=== PATIENT | female | born 2000 | race African-American/Black ===

== ENCOUNTER 2023-12-12 20:57 | Emergency (ER) | payer OTHER ==
[2023-12-12 21:06] VITALS: BP 135/80; PULSE 99; RESP 18; TEMP 98.5; BMI 34.4
[2023-12-12] MEDS ORDERED: LIDOCAINE HCL 1%, 10 MG/ML (20ML VIAL) ONE (21:56)
[2023-12-12] MEDS ORDERED: CEPHALEXIN MONOHYDRATE 500 MG CAPSULE (UD) ONE (22:24)
[2023-12-12] MEDS: LIDOCAINE HCL 1%, 10 MG/ML (50 mL VIAL) SQ ONE (22:32)
[2023-12-12] MEDS: LIDOCAINE HCL 1%, 10 MG/ML (50 mL VIAL) INF ONE (22:33)
[2023-12-12] MEDS: CEPHALEXIN MONOHYDRATE 500 MG CAPSULE (UD) PO ONE (22:33)
== END 2023-12-12 22:47 | disposition home or self-care (01) ==
LOC: JER 20:57
PROC: 0X950ZZ Drainage of Left Axilla, Open Approach (ICD-10-PCS; principal; 2023-12-12)
DX: L02.412 Cutaneous abscess of left axilla (principal)
CPT/HCPCS: 99284-25